=== PATIENT | male | born 1980 | race Caucasian/White ===

== ENCOUNTER 2023-10-30 17:21 | Emergency (ER) | payer OTHER ==
[2023-10-30] MEDS: Acetaminophen/HYDROcodone 325-10 MG Tab PO ONE (17:56)
[2023-10-30] MEDS: cefTRIAXone 1 GM, Lidocaine 1% 2.1 ML IM ONE (18:02)
== END 2023-10-30 18:12 | disposition home or self-care (01) ==
LOC: DL.ED 17:21
DX: K04.7 Periapical abscess without sinus (principal)
CPT/HCPCS: 96372; 99283; A9270; J0696; 99282; J3490